=== PATIENT | female | born 1955 | race Caucasian/White ===

== ENCOUNTER 2020-03-08 20:36 | Inpatient (IN) ==
[2020-03-08 20:58] VITALS: BMI 32.5
[2020-03-08] MEDS ORDERED: ZOFRAN INJ 4 MG VIAL IVP ONE (21:01)
[2020-03-08] MEDS ORDERED: DEMEROL INJ IVP ONE (21:01)
[2020-03-08] MEDS ORDERED: PEPCID 20 MG IV PREMIX* 20 MG/50 ML BAG IV ONE ×2 (21:01→21:21)
--- NOTE | 2020-03-08 21:04 | DR.DIZZY ---
HPI Time seen Time Seen by Provider: 03/08/20 20:54 HPI Comment HPI Comment: PATIENT IS 64YR OLD FEMALE IN ER WITH NAUSEA, VOMITING, DIARRHEA AND SOB FOR SEVERAL DAYS. POSITIVE FOR COVID 19 LAST WEEK. FAIL OUT PATIENT TREATMENT. PROGRESSIVELY GETTING WORSE. SHE IS WEAK AND HAVING PERSISTENT DIARRHEA ANS NAUSEA. DENIES DYSURIA AND HAVE ANIREXIA. ALSO HAVING BODYACHES, 4/10 CURRENTLY. Complaint Chief Complaint Doctor Comments: NAUSEA, VOMITING AND ABDOMINAL PAIN WITH BODY ACHES AND SOB TIME COVID-19 Coronavirus risk:travel/contact w/high risk person: No Has patient experienced Coronavirus symptoms: Yes Coronavirus symptoms experienced: Shortness of Breath Nurses Notes Reviewed Nurses Notes Review: Yes Source History Provided: Patient and Significant Other Mode of Arrival Mode of Arrival: Wheelchair Timing Came on: Suddenly Duration Duration: Constant Duration: Days Location of Weakness Weakness Location: Generalized Context Onset: At rest History of: None Stroke Symptoms: None Severity Severity: Abnormal activity level Modifying factors Worsens: Other (EXERTION.) Associated signs and symptoms Associated Signs and Symptoms: Weak, Nausea and Vomiting PMH PMH Past Surgical History: Yes ROS Review of Systems Constitutional: See HPI, Fever, Malaise, Weakness, Fatigue and Loss of Appetite Eyes: No Symptoms Reported, See HPI, Blurred Vision and Diplopia ENTM: No Symptoms Reported; negative Nose Discharge, Nose Congestion and Throat Pain Respiratoy: See HPI and Short of Breath; negative Moist Cough and Wheezing Cardiovascular: No Symptoms Reported and See HPI; negative Chest Pain and Edema Gastrointestinal/Abdominal: See HPI, Abdominal Pain, Diarrhea, Nausea and Vomiting Genitourinary: No Symptoms Reported and See HPI Neurological: See HPI and Weakness; negative Headache and Dizziness Musculoskeletal: See HPI and Muscle Pain; negative Back Pain Integumentary: Change in Color, Dryness and Rash; negative Juandice Hematologic/Lymphatic: No Symptoms Reported and Easy Bruising; negative See HPI and Swollen Glands Endocrine: See HPI and Decreased Appetite; negative Increased Thirst and Increased Urine Psychiatric: No Symptoms Reported and See HPI All Other Systems: Reviewed and Negative PE Vital Signs Vitals: Temperature 99.2 F Pulse Rate 64 Respiratory Rate 20 Blood Pressure [Right Arm] 154/76 Blood Pressure 141/67 O2 Sat by Pulse Oximetry 94 General Limitations: No Limitations General Appearance: Alert and In Distress Head Head Exam: Normal Inspection and Atraumatic Eyes Eye exam: Normal Appearance, PERRL and EOMI; negative Scleral Icterus and Conjunctival Injection Pupils: Regular, Round: Bilateral and Reactive: Bilateral Sclera/Conjunctival: Normal Inspection: Bilateral ENT ENT Exam: Normal Exam, Normal Oropharynx, Normal External Ear Exam and TM's Normal Bilaterally Neck Neck Exam: Normal Inspection and Trachea Midline; negative Tenderness and Lymphadenopathy Chest Chest Inspection: Normal Inspection and Symmetric Chest Wall Rise; negative Tenderness Respiratory Respiratory Exam: Chest Wall Tenderness and Respiratory Distress; negative Accessory Muscle Use Respiratory Exam: Bilateral: Rhonchi and Lower: Rhonchi Cardiovascular Cardiovascular Exam: Regular Rate, Normal Rhythm and Normal Heart Sounds; negative Systolic Murmur and Diastolic Murmur Abdominal Exam Abdominal Exam: Normal Bowel Sounds, Soft and Tenderness Abdominal Tenderness: Diffuse and Moderate Rectal Rectal Exam: Deferred Extremeties Extremities Exam: Tenderness, Normal Capillary Refill, Edema and Calf Tenderness Back Back Exam: (R) CVA Tenderness, (L) CVA Tenderness and Paraspinal Tenderness Neurologic Neurological Exam: Alert, Oriented X3, CN II-XII Intact and Motor Sensory Deficit Patient Oriented To: Person, Place and Time Speech: Fluid Speech Cranial Nerve Exam: EOM Function (II, III, IV, ): Normal, Facial Sensation (V): Normal, Facial Palsy (VII): Normal, Gag reflex (XI): Normal and Tongue Deviation: Normal Motor Strength - LUE: 5/5 Motor Strength - RUE: 5/5 Motor Strength - LLE: 5/5 Motor Strength - RLE: 5/5 Upper Motor Neuron Exam: Babinski Sign: Normal Psychiatric Psychiatric Exam: Normal Affect and Normal Mood Skin Skin Exam: Dry MDM Additional Information Obtained Additional Information Obtained From: Family Differential Diagnosis Differential Diagnosis: Anemia, Dehydration, Dysrhythmia, Electrolyte disorder, Hypoglycemia, Myocardial infarction and Other (GASTROENTERITIS, PNEUMONIA, SOB.) COURSE Treatment Treatment: SEE ORTHERS. NS IL IV BOLUS. Education/Counseling Education/Counseling: Patient Educated On: Diagnosis ROR Labs Reviewed Laboratory Results Reviewed?: Yes Result Diagrams: 03/10/20 04:15 03/10/20 04:15 Laboratory: 03/08/20 21:25 Blood Blood Culture - Preliminary 03/08/20 21:18 Blood Blood Culture - Preliminary WBC 6.2 X10^3/uL (3.6-10.0) 03/08/20 21:18 RBC 3.64 X10^6/uL (3.5-5.4) 03/08/20 21:18 Hgb 11.2 g/dL (12.0-16.0) L 03/08/20 21:18 Hct 33.7 % (36.0-47.0) L 03/08/20 21:18 MCV 92.6 fL (80.0-100.0) 03/08/20 21:18 MCH 30.6 pg (27.0-34.0) 03/08/20 21:18 MCHC 33.1 g/dL (33.0-35.0) 03/08/20 21:18 RDW 12.2 % (11.6-16.5) 03/08/20 21:18 Plt Count 258 X10^3/uL (150.0-450.0) 03/08/20 21:18 MPV 8.9 fL (7.4-11.0) 03/08/20 21:18 Neut % (Auto) 77.3 % (42.0-75.0) H 03/08/20 21:18 Lymph % (Auto) 16.0 % (21.0-51.0) L 03/08/20 21:18 Maury % (Auto) 5.9 % (0.0-13.0) 03/08/20 21:18 Eos % (Auto) 0.6 % (0.9-2.9) L 03/08/20 21:18 Baso % (Auto) 0.2 % (0.2-1.0) 03/08/20 21:18 Neut # (Auto) 4.8 x10^3/uL (2.2-4.8) 03/08/20 21:18 Lymph # (Auto) 1.0 X10^3/uL (1.3-2.9) L 03/08/20 21:18 Maury # (Auto) 0.4 x10^3/uL (0.3-0.8) 03/08/20 21:18 Eos # (Auto) 0.0 x10^3/uL (0.0-0.2) 03/08/20 21:18 Baso # (Auto) 0.0 X10^3/uL (0.0-0.1) 03/08/20 21:18 Absolute Nucleated RBC 0.0 /100WBC 03/08/20 21:18 Sample Site R rad 03/08/20 21:25 ABG pH 7.390 (7.35-7.45) 03/08/20 21:25 ABG pCO2 31.0 mmHg (35.0-45.0) L 03/08/20 21:25 ABG pO2 55.0 mmHg (80.0-100.0) L 03/08/20 21:25 ABG HCO3 18.8 mmol/L (22-26) L 03/08/20 21:25 ABG O2 Saturation 88.0 % (90-100) L 03/08/20 21:25 ABG Base Excess -5.2 mmol/L (-2.0-2.0) L 03/08/20 21:25 Hema Test Poss 03/08/20 21:25 A-a Gradient 56.0 mmHg 03/08/20 21:25 FiO2 21.0 03/08/20 21:25 Blood Gas Comments Ronnie well kb 03/08/20 21:25 Sodium 138 mmol/L (136-145) 03/08/20 21:18 Corrected Sodium TNP 03/08/20 21:18 Potassium 4.0 mmol/L (3.5-5.1) 03/08/20 21:18 Chloride 104 mmol/L (98-107) 03/08/20 21:18 Carbon Dioxide 21.7 mmol/L (21-32) 03/08/20 21:18 BUN 28 mg/dL (7-18) H 03/08/20 21:18 Creatinine 2.07 mg/dL (0.55-1.02) H 03/08/20 21:18 Est GFR (MDRD) Af Amer 31 (>60) L 03/08/20 21:18 Est GFR (MDRD) Non-Af 25 (>60) L 03/08/20 21:18 Glucose 105 mg/dL (65-99) H 03/08/20 21:18 Lactic Acid 0.9 mmol/L (0.4-2.0) 03/08/20 21:18 Calcium 9.4 mg/dL (8.5-10.1) 03/08/20 21:18 Corrected Calcium 10.2 mg/dL (8.5-10.1) H 03/08/20 21:18 Ferritin 1660 ng/mL (8-252) H 03/08/20 21:18 Total Bilirubin 0.50 mg/dL (0.2-1.0) 03/08/20 21:18 AST 22 Units/L (15-37) 03/08/20 21:18 ALT 22 Units/L (12-78) 03/08/20 21:18 Alkaline Phosphatase 60 Units/L (46-116) 03/08/20 21:18 Creatine Kinase 27 Units/L (26-192) 03/08/20 21:18 CK-MB (CK-2) < 1.0 ng/mL (0-4.0) 03/08/20 21:18 CK/CKMB % Calc 3.7 % (<4) 03/08/20 21:18 Troponin I < 0.02 ng/mL (0-1.5) 03/08/20 21:18 Total Protein 7.1 g/dL (6.4-8.2) 03/08/20 21:18 Albumin 3.0 g/dL (3.4-5.0) L 03/08/20 21:18 Globulin 4.1 g/dL (2.5-4.5) 03/08/20 21:18 Albumin/Globulin Ratio 0.7 Ratio (1.1-2.1) L 03/08/20 21:18 Amylase 67 Units/L (25-115) 03/08/20 21:18 Lipase 165 Units/L (73-393) 03/08/20 21:18 XRAY XRAY Interpreted by: Radiologist (REPORT NOTED AND DISCUSSED WITH PATIENT AND HE R .) and Self EKG Buchanan: Normal Rhythm: NSR Block: None Hypertrophy: None ST: Nonsp Opioid Opioid Risk Tool Total: 0 Total Score Risk Category: Low Risk Copyright: [facility] predicting aberrant behaviors Diagnosis Discharge Problem: COVID-19 virus infection, Acute dehydration, Gastroenteritis Pneumonia Qualifiers: Pneumonia type: due to unspecified organism Laterality: bilateral Lung location: lower lobe of lung Qualified Code(s): J18.9 - Pneumonia, unspecified organism Diarrhea Qualifiers: Diarrhea type: unspecified type Qualified Code(s): R19.7 - Diarrhea, unspecified Instructions Instructions: Shortness of Breath, Adult, Wcns-xw-Wzpt Upper Respiratory Infection, Adult, Spnx-ze-Idza Hypoxia Gastritis, Adult, Opui-gr-Baxt Fever, Adult Cough, Adult, Yrcv-ux-Lzgm Antibiotic Medicine, Adult, Tona-jm-Volq Nausea and Vomiting, Adult, Eyru-cm-Ydyc Hypertension, Fznj-ze-Lvrb You've Been Prescribed an Antibiotic in the Hospital for an Infection - [facility] (09/2017) Managing Your Hypertension Rehydration, Elderly Dehydration, Elderly, Uywt-tv-Oedl Diarrhea, Adult, Uxsw-wy-Hbod Community-Acquired Pneumonia, Adult, Lnxe-vp-Kbhs Forms: Precautions for COVID19 Patient Portal Social Distancing
[2020-03-08] MEDS ORDERED: ZOFRAN INJ 4 MG VIAL ONE (21:20)
[2020-03-08] MEDS ORDERED: NS 1000 ML 1,000 ML ONE (21:20)
[2020-03-08] MEDS: NS 1000 ML 1,000 ML IV SCH (21:28)
[2020-03-08 21:29] LABS: ABG BASE EXCESS -5.2 mmol/L (-2.0-2.0); ABG HCO3 18.8 mmol/L (22-26)
[2020-03-08 21:30] LABS: ABG ALLEN TEST POSS
[2020-03-08 21:31] LABS: BASOPHILS % (AUTO) 0.2 % (0.2-1.0); EOSINOPHILS % (AUTO) 0.6 % (0.9-2.9); HEMATOCRIT 33.7 % (36.0-47.0); HEMOGLOBIN 11.2 g/dL (12.0-16.0); MEAN CORPUSCULAR HEMOGLOBIN 30.6 pg (27.0-34.0); MEAN CORPUSCULAR HGB CONC 33.1 g/dL (33.0-35.0); MEAN CORPUSCULAR VOLUME 92.6 fL (80.0-100.0); MEAN PLATELET VOLUME 8.9 fL (7.4-11.0); MONOCYTES # (AUTO) 0.4 x10^3/uL (0.3-0.8); MONOCYTES % (AUTO) 5.9 % (0.0-13.0); NEUTROPHILS # (AUTO) 4.8 x10^3/uL (2.2-4.8); NEUTROPHILS % (AUTO) 77.3 % (42.0-75.0); PLATELET COUNT 258 X10^3/uL (150.0-450.0); RED BLOOD COUNT 3.64 X10^6/uL (3.5-5.4); RED CELL DISTRIBUTION WIDTH 12.2 % (11.6-16.5); WHITE BLOOD COUNT 6.2 X10^3/uL (3.6-10.0)
[2020-03-08 21:50] LABS: BLOOD UREA NITROGEN 28 mg/dL (7-18); CALCIUM 9.4 mg/dL (8.5-10.1); CARBON DIOXIDE 21.7 mmol/L (21-32); CHLORIDE 104 mmol/L (98-107); CREATININE 2.07 mg/dL (0.55-1.02); SODIUM 138 mmol/L (136-145); TROPONIN I < 0.02 ng/mL (0-1.5); eGFR NON BLACK RACES 25 (>60)
[2020-03-08 21:53] LABS: ALANINE AMINOTRANSFERASE 22 Units/L (12-78); ALKALINE PHOSPHATASE 60 Units/L (46-116); AMYLASE 67 Units/L (25-115); ASPARTATE AMINO TRANSFERASE 22 Units/L (15-37); CKMB % 3.7 % (<4); COR CA(FOR HYPOALB) 10.2 mg/dL (8.5-10.1); CREATINE KINASE 27 Units/L (26-192); CREATINE KINASE MB < 1.0 ng/mL (0-4.0); LIPASE 165 Units/L (73-393); TOTAL PROTEIN 7.1 g/dL (6.4-8.2)
--- NOTE | 2020-03-08 21:55 | CT ---
HISTORYAbdominal pain; Covid +STUDYCT ABDOMEN/PELVIS without IV contrastCOMPARISONNoneTECHNIQUEMultiple axial images of the abdomen and pelvis were obtained from the lung bases to the pubic symphysis without the administration of IV contrast. Dose reduction techniques including Automated Exposure Control (AEC) and adjustment of mA and kV were utilized.FINDINGSThe visualized portions of the lung bases reveal diffuse ground-glass infiltrates that are highly suspicious for COVID-19 pneumonia.Mild splenomegaly with a small accessory splenule anteriorly. Liver appears normal.Prior cholecystectomy. No biliary ductal dilation.No pancreatic abnormality is seen.The adrenal glands appear normal.No hydronephrosis or renal abnormality is seen. Ureters and bladder appear normal. Phleboliths are seen in the pelvis.Mild colonic diverticula are seen without evidence of diverticulitis. Small hiatus hernia is seen. Stomach is not distended to evaluate further. No suggestion of enteritis or colitis. Normal appendix is seen.No adnexal masses.Abdominal aorta is normal in size.No suspicious lymphadenopathy.No free intraperitoneal air or fluid is seen.Prominent arthritic changes are seen in the hips, right greater than left. Diastasis of the rectus musculature without evidence of hernia formation.IMPRESSIONProminent ground-glass infiltrates throughout the lower lungs are concerning for COVID-19 pneumonia.Mild splenomegaly is seen. Small hiatus hernia.Electronically signed by: David Ambrose (Mar 08, 2020 21:54:40)
[2020-03-08] MEDS ORDERED: ZOSYN VIAL 3.375 GRAMS IV ONE (22:24)
[2020-03-08] MEDS ORDERED: NS 100 ML IV + SPIKE MINIBAG* 100 ML IV ONE (22:24)
[2020-03-08] MEDS ORDERED: COMPAZINE INJ ONE (22:24)
[2020-03-08] MEDS ORDERED: COMPAZINE INJ IVP ONE (22:26)
[2020-03-08] MEDS: ZOSYN VIAL 3.375 GRAMS 3.375 G in NS 100 ML IV + SPIKE MINIBAG* 100 ML IV SCH (22:28)
[2020-03-08] MEDS ORDERED: REMDESIVIR (INVESTIGATIONAL DRUG GS-5734) 200 MG in NS 250 ML IV 250 ML IV SCH (22:54)
[2020-03-08] MEDS ORDERED: MORPHINE SULFATE INJ 2 MG INJ IVP PRN (22:56)
[2020-03-08] MEDS ORDERED: ZOFRAN INJ 4 MG VIAL IVP PRN (22:56)
[2020-03-09] MEDS ORDERED: XOPENEX 1.25 MG/3 ML NEBULE NEB PRN (00:41)
[2020-03-09] MEDS ORDERED: NS 100 ML IV 100 ML IV ONE (01:54)
[2020-03-09] MEDS ORDERED: ASCORBIC ACID INJ MULTI-DOSE VIAL IV ONE (01:55)
[2020-03-09] MEDS: ASCORBIC ACID INJ MULTI-DOSE VIAL 1,500 MG in NS 100 ML IV 100 ML IV SCH ×4 (02:04→20:45)
[2020-03-09 05:19] LABS: BASOPHILS % (AUTO) 0.3 % (0.2-1.0); EOSINOPHILS # (AUTO) 0.1 x10^3/uL (0.0-0.2); EOSINOPHILS % (AUTO) 1.4 % (0.9-2.9); HEMATOCRIT 32.7 % (36.0-47.0); HEMOGLOBIN 10.8 g/dL (12.0-16.0); LYMPHOCYTES # (AUTO) 1.2 X10^3/uL (1.3-2.9); LYMPHOCYTES % (AUTO) 21.8 % (21.0-51.0); MEAN CORPUSCULAR HEMOGLOBIN 30.7 pg (27.0-34.0); MEAN CORPUSCULAR HGB CONC 32.9 g/dL (33.0-35.0); MEAN CORPUSCULAR VOLUME 93.5 fL (80.0-100.0); MEAN PLATELET VOLUME 9.4 fL (7.4-11.0); MONOCYTES # (AUTO) 0.4 x10^3/uL (0.3-0.8); MONOCYTES % (AUTO) 6.4 % (0.0-13.0); NEUTROPHILS % (AUTO) 70.1 % (42.0-75.0); PLATELET COUNT 253 X10^3/uL (150.0-450.0); RED CELL DISTRIBUTION WIDTH 12.4 % (11.6-16.5); WHITE BLOOD COUNT 5.7 X10^3/uL (3.6-10.0)
[2020-03-09 05:32] LABS: ALANINE AMINOTRANSFERASE 19 Units/L (12-78); ALBUMIN 2.8 g/dL (3.4-5.0); ALKALINE PHOSPHATASE 56 Units/L (46-116); ASPARTATE AMINO TRANSFERASE 21 Units/L (15-37); BLOOD UREA NITROGEN 29 mg/dL (7-18); CALCIUM 9.3 mg/dL (8.5-10.1); CARBON DIOXIDE 22.2 mmol/L (21-32); CHLORIDE 107 mmol/L (98-107); COR CA(FOR HYPOALB) 10.3 mg/dL (8.5-10.1); CREATININE 2.18 mg/dL (0.55-1.02); SODIUM 142 mmol/L (136-145); TOTAL PROTEIN 6.8 g/dL (6.4-8.2); eGFR NON BLACK RACES 24 (>60)
[2020-03-09 06:19] LABS: BILIRUBIN,URINE NEGATIVE (NEGATIVE); BLOOD/HEMOGLOBIN,URINE NEGATIVE (NEGATIVE); GLUCOSE, URINE NEGATIVE (NEGATIVE); KETONES,URINE NEGATIVE (NEGATIVE); LEUKOCYTE ESTERASE ,URINE NEGATIVE (NEGATIVE); NITRITES,URINE NEGATIVE (NEGATIVE); PROTEIN,URINE 2+ (NEGATIVE); UROBILINOGEN,URINE NORMAL (NORMAL)
[2020-03-09 06:26] LABS: APPEARANCE,URINE CLEAR (CLEAR); COLOR,URINE YELLOW (YELLOW)
[2020-03-09] MEDS: ZOSYN VIAL 3.375 GRAMS 3.375 G in NS 100 ML IV + SPIKE MINIBAG* 100 ML IV SCH ×3 (06:35→22:50)
[2020-03-09] MEDS: NS 1000 ML 1,000 ML IV SCH ×3 (06:35→23:28)
[2020-03-09 06:57] LABS: BACTERIA,URINE TRACE /HPF (NEGATIVE); MUCUS,URINE FEW /HPF (NEGATIVE); RBC,URINE NONE SEEN /HPF (0-3); SQUAMOUS EPITHELIAL CELL,UR MANY /HPF (NEGATIVE)
[2020-03-09] MEDS ORDERED: TOPAMAX TAB 100 MG PO ONE (08:25)
[2020-03-09] MEDS ORDERED: PLAQUENIL ONE (08:25)
[2020-03-09] MEDS ORDERED: DECADRON TAB ONE (08:26)
[2020-03-09] MEDS ORDERED: DECADRON TAB PO SCH (09:00)
[2020-03-09] MEDS ORDERED: DUONEB 0.5 MG/3 MG (3 mL) NEB SCH (09:00)
[2020-03-09] MEDS ORDERED: VITAMIN D (1.25MG) PO SCH (09:00)
[2020-03-09] MEDS ORDERED: PLAQUENIL PO SCH (09:00)
[2020-03-09] MEDS: PULMICORT NEB TX 0.5 MG NEB SCH ×2 (09:00→21:35)
[2020-03-09] MEDS ORDERED: VITAMIN A PO SCH (09:00)
[2020-03-09 09:12] LABS: ABG ALLEN TEST POS; ABG BASE EXCESS -5.1 mmol/L (-2.0-2.0); ABG HCO3 18.6 mmol/L (22-26)
[2020-03-09] MEDS: LEVSIN/MAALOX/LIDOC VISC PO SCH ×3 (09:20→17:14)
[2020-03-09] MEDS: LOVENOX INJ 30 MG SYR SC SCH (09:21)
[2020-03-09] MEDS: PROTONIX INJ 40 MG VIAL IVP SCH (09:22)
[2020-03-09] MEDS: SOLU-Medrol 125 MG VIAL IVP SCH ×3 (09:22→21:50)
[2020-03-09] MEDS: TOPAMAX PO SCH (09:22)
[2020-03-09] MEDS: TRICOR TAB 160 MG PO SCH (09:23)
[2020-03-09] MEDS: ZINC SULFATE PO SCH ×2 (09:24→20:45)
--- NOTE | 2020-03-09 10:06 | RAD ---
HISTORYPNEUMONIA, COVID +STUDYCHEST, 1 VIEWCOMPARISONPortable chest April 09, 2019FINDINGSThe trachea is midline. The cardiac silhouette is unremarkable. Diffuse bilateral airspace disease is seen in both lungs that is new from April 08, 2019. There are no effusions pneumothorax or adenopathy. The bony thorax is unremarkable.IMPRESSIONBilateral diffuse peripheral infiltrates right greater than left seen throughout both lungs new from prior chest film in 2019 but which were seen on the CT scan of March 08, 2020 consistent with viral/COVID-19 pneumonia.Electronically signed by: LLOYD OBREGON (Mar 09, 2020 10:05:31)
--- NOTE | 2020-03-09 13:20 | DR.H&P ---
H&P - History & Physical for Day of: H&P Date: 03/08/20 - Chief Complaint Chief Complaint: SOB, WEAKNESS, INTRACTABLE ABDOMINAL PAIN - History of Present Illness History of Present Illness: PT IS 64 WF ER ADMISSION AFTER PT PRESENTED WITH CO INTRACTABLE UPPER ABDOMINAL BURNING, WEAKNESS, SOB AND REPORTS COVID 19+. PT HAD ONSET OF SINUS INFECTION SYMPTOMS 2 WEEKS AGO, GIVEN ZITHROMAX PO AND IM ROCEPHIN X 1 DAYS. PT HAD RESULTS OF +COVID AND STARTED ON PO PLAQUENIL, PEPCID AND CONTINUED ZITHROMAX. PT HAD OUTPT IV FLUIDS X 2 LITERS WITH DECADRON AND IV ROCEPHIN WITH MINIMAL IMPROVEMENT. PT DENIES ANY CAD OR DM. PT HAS PMH OF OA AND HTN. PT HAD CT ABD PELVIS IN ER REVEALING BILATERAL PNEUMONIA - Past Medical History Past Medical History: Arthritis, Depression, Dyslipidemia, Hypertension - Past Surgical History Surgical History: Unknown - Family History Family Medical History: Cancer, Hypertension - Social History Does patient currently use any type of tobacco product: No Have you used tobacco products in the last 12 months: No Type of Tobacco Use: None Does any household member use tobacco: No Alcohol Use: None Drug Use: None - Medications Home Medications: No Known Drug Allergies Allergy (Verified 03/08/20 20:40) CONTINUE taking the following medications amlodipine 5 mg PO DAILY 03/08/20 [History] carvedilol 12.5 mg PO BID 03/08/20 [History] escitalopram oxalate 10 mg PO HS 03/08/20 [History] famotidine 20 mg PO BID 03/08/20 [History] hydroxychloroquine 200 mg PO BID 03/08/20 [History] losartan 100 mg PO HS 03/08/20 [History] meloxicam 15 mg PO DAILY 03/08/20 [History] ondansetron 8 mg PO Q8H PRN 03/08/20 [History] ropinirole 2 mg PO HS 03/08/20 [History] topiramate 25 mg PO DAILY 03/08/20 [History] - Review of Systems Constitutional: Fever, Weakness Eyes: No Symptoms Reported ENT: Throat Pain Respiratory: Shortness of Breath, SOB with Excertion Cardiovascular: No Symptoms Reported Gastrointestinal: Nausea, Abdominal Pain Musculoskeletal: Back Pain Skin: No Symptoms Reported Neurological: Weakness - Physical Exam Vital Signs: Temperature 98.7 F Pulse Rate [Left Brachial] 63 Pulse Rate 71 Respiratory Rate 20 Blood Pressure [Left Arm] 160/74 Blood Pressure [Right Arm] 167/76 Blood Pressure 147/68 O2 Sat by Pulse Oximetry 91 Oriented: Normal Eyes: Normal Ear: Normal Nose: Normal Throat: Dry Respiratory: Diminished Throughout Cardiovascular: Normal. negative: Edema : Normal Auscultation: Bowel Sounds: Normal Palpation: Normal Tenderness: Epigastric Skin: Decreased Turgur Musculoskeletal: Back:Thoracic, Back:Lumbar Affect: Anxious Speech Pattern: Clear, Appropriate - Assessment/Plan (1) Pneumonia due to 2019 novel coronavirus Status: Acute Plan: ADMIT, BLOOD AND SPUTUM CULTURE ON ADMISSION. IV HYDRATION, STRICT I&OS. IV ATBX THERAPY, IV REMDESIVIR, CONVALSECENT PLASMA. BP CONTROL, ABG ON ADMISSION, RESP THERAPY. IV SOLU MEDROL, CARDIAC MONITORING. (2) Acute renal insufficiency Status: Acute (3) Hypertension Status: Acute (4) Gastroenteritis Status: Acute - Allergies Allergies/Adverse Reactions: Allergies Allergy/AdvReac Type Severity Reaction Status Date / Time No Known Drug Allergies Allergy Verified 03/08/20 20:40
[2020-03-09] MEDS: REQUIP PO SCH (20:45)
[2020-03-09] MEDS: COZAAR PO SCH (20:45)
[2020-03-09] MEDS: REMDESIVIR (INVESTIGATIONAL DRUG GS-5734) 100 MG in NS 250 ML IV 250 ML IV SCH (21:50)
[2020-03-10] MEDS: NS 1000 ML 1,000 ML IV SCH ×4 (01:15→23:26)
[2020-03-10] MEDS: ASCORBIC ACID INJ MULTI-DOSE VIAL 1,500 MG in NS 100 ML IV 100 ML IV SCH ×4 (03:00→20:40)
[2020-03-10 05:14] LABS: BASOPHILS % (AUTO) 0.2 % (0.2-1.0); HEMATOCRIT 31.2 % (36.0-47.0); HEMOGLOBIN 10.3 g/dL (12.0-16.0); LYMPHOCYTES # (AUTO) 0.7 X10^3/uL (1.3-2.9); LYMPHOCYTES % (AUTO) 14.3 % (21.0-51.0); MEAN CORPUSCULAR HEMOGLOBIN 30.7 pg (27.0-34.0); MEAN CORPUSCULAR HGB CONC 33.1 g/dL (33.0-35.0); MEAN CORPUSCULAR VOLUME 92.6 fL (80.0-100.0); MONOCYTES # (AUTO) 0.2 x10^3/uL (0.3-0.8); NEUTROPHILS # (AUTO) 3.9 x10^3/uL (2.2-4.8); NEUTROPHILS % (AUTO) 81.5 % (42.0-75.0); PLATELET COUNT 292 X10^3/uL (150.0-450.0); RED BLOOD COUNT 3.37 X10^6/uL (3.5-5.4); RED CELL DISTRIBUTION WIDTH 12.5 % (11.6-16.5); WHITE BLOOD COUNT 4.8 X10^3/uL (3.6-10.0)
[2020-03-10] MEDS: SOLU-Medrol 125 MG VIAL IVP SCH ×3 (05:20→20:45)
[2020-03-10] MEDS: ZOSYN VIAL 3.375 GRAMS 3.375 G in NS 100 ML IV + SPIKE MINIBAG* 100 ML IV SCH ×3 (05:20→22:40)
[2020-03-10 05:27] LABS: ALBUMIN 2.7 g/dL (3.4-5.0); CALCIUM 9.3 mg/dL (8.5-10.1); CARBON DIOXIDE 17.5 mmol/L (21-32); COR CA(FOR HYPOALB) 10.3 mg/dL (8.5-10.1); CREATININE 1.55 mg/dL (0.55-1.02); TOTAL PROTEIN 6.7 g/dL (6.4-8.2)
[2020-03-10] MEDS: LOVENOX INJ 30 MG SYR SC SCH (08:43)
[2020-03-10] MEDS: VITAMIN A PO SCH (08:43)
[2020-03-10] MEDS: VITAMIN D3 125 mcg (5,000 UNITS) PO SCH (08:43)
[2020-03-10] MEDS: PROTONIX INJ 40 MG VIAL IVP SCH (08:43)
[2020-03-10] MEDS: ZINC SULFATE PO SCH ×2 (08:44→20:40)
[2020-03-10] MEDS ORDERED: LASIX IVP SCH (09:00)
[2020-03-10] MEDS: PULMICORT NEB TX 0.5 MG NEB SCH ×2 (09:30→20:55)
[2020-03-10] MEDS ORDERED: TOPAMAX TAB 100 MG PO ONE (09:39)
[2020-03-10] MEDS ORDERED: FLONASE NASAL SPRAY ENOSTRIL ONE (09:40)
[2020-03-10] MEDS ORDERED: NORVASC TAB 5 MG ONE (09:40)
[2020-03-10] MEDS: TOPAMAX PO SCH (09:45)
[2020-03-10] MEDS: TRICOR TAB 160 MG PO SCH (09:45)
[2020-03-10] MEDS: FLONASE NASAL SPRAY ENOSTRIL SCH (09:55)
[2020-03-10] MEDS: BENADRYL INJ 50 MG VIAL IV SCH ×2 (09:56→18:41)
[2020-03-10] MEDS ORDERED: NORVASC TAB 5 MG PO SCH (10:00)
[2020-03-10] MEDS ORDERED: XOPENEX 1.25 MG/3 ML NEBULE NEB ONE (11:22)
[2020-03-10] MEDS: XOPENEX 1.25 MG/3 ML NEBULE NEB SCH ×2 (12:00→20:55)
[2020-03-10] MEDS: COZAAR PO SCH (20:40)
[2020-03-10] MEDS: REQUIP PO SCH (20:40)
[2020-03-10] MEDS: REMDESIVIR (INVESTIGATIONAL DRUG GS-5734) 100 MG in NS 250 ML IV 250 ML IV SCH (21:35)
[2020-03-11] MEDS: ASCORBIC ACID INJ MULTI-DOSE VIAL 1,500 MG in NS 100 ML IV 100 ML IV SCH ×4 (02:43→20:39)
[2020-03-11] MEDS: BENADRYL INJ 50 MG VIAL IV SCH ×3 (02:43→17:51)
[2020-03-11] MEDS: NS 1000 ML 1,000 ML IV SCH ×4 (04:31→20:40)
[2020-03-11] MEDS: XOPENEX 1.25 MG/3 ML NEBULE NEB SCH ×3 (05:05→21:08)
[2020-03-11] MEDS: ZOSYN VIAL 3.375 GRAMS 3.375 G in NS 100 ML IV + SPIKE MINIBAG* 100 ML IV SCH ×3 (05:15→21:26)
[2020-03-11] MEDS: SOLU-Medrol 125 MG VIAL IVP SCH ×3 (05:15→21:25)
[2020-03-11 06:19] LABS: BASOPHILS % (AUTO) 0.1 % (0.2-1.0); HEMATOCRIT 31.1 % (36.0-47.0); HEMOGLOBIN 10.4 g/dL (12.0-16.0); LYMPHOCYTES # (AUTO) 0.9 X10^3/uL (1.3-2.9); LYMPHOCYTES % (AUTO) 8.6 % (21.0-51.0); MEAN CORPUSCULAR HEMOGLOBIN 31.2 pg (27.0-34.0); MEAN CORPUSCULAR HGB CONC 33.5 g/dL (33.0-35.0); MEAN CORPUSCULAR VOLUME 93.1 fL (80.0-100.0); MEAN PLATELET VOLUME 9.2 fL (7.4-11.0); MONOCYTES # (AUTO) 0.5 x10^3/uL (0.3-0.8); NEUTROPHILS % (AUTO) 86.3 % (42.0-75.0); PLATELET COUNT 341 X10^3/uL (150.0-450.0); RED BLOOD COUNT 3.35 X10^6/uL (3.5-5.4); RED CELL DISTRIBUTION WIDTH 12.4 % (11.6-16.5); WHITE BLOOD COUNT 10.4 X10^3/uL (3.6-10.0)
[2020-03-11 06:32] LABS: ALBUMIN 2.7 g/dL (3.4-5.0); CALCIUM 9.2 mg/dL (8.5-10.1); COR CA(FOR HYPOALB) 10.2 mg/dL (8.5-10.1); CREATININE 1.67 mg/dL (0.55-1.02); TOTAL PROTEIN 6.9 g/dL (6.4-8.2)
[2020-03-11] MEDS: PULMICORT NEB TX 0.5 MG NEB SCH ×2 (09:00→21:09)
[2020-03-11 09:41] LABS: ABG BASE EXCESS -5.7 mmol/L (-2.0-2.0); ABG HCO3 18.2 mmol/L (22-26)
[2020-03-11] MEDS: NORVASC TAB 10 MG PO SCH (09:42)
[2020-03-11] MEDS: LOVENOX INJ 30 MG SYR SC SCH (09:42)
[2020-03-11] MEDS: PROTONIX INJ 40 MG VIAL IVP SCH (09:43)
[2020-03-11] MEDS: VITAMIN D3 125 mcg (5,000 UNITS) PO SCH (09:43)
[2020-03-11] MEDS: TRICOR TAB 160 MG PO SCH (09:43)
[2020-03-11] MEDS: ZINC SULFATE PO SCH ×2 (09:43→20:41)
[2020-03-11] MEDS: FLONASE NASAL SPRAY ENOSTRIL SCH (09:44)
[2020-03-11] MEDS: VITAMIN A PO SCH (09:44)
[2020-03-11] MEDS: TOPAMAX PO SCH (09:44)
--- NOTE | 2020-03-11 12:11 | RAD ---
HISTORYCOVID PNASTUDYCHEST, 1 VIEWCOMPARISONPortable chest March 09, 2020FINDINGSThe trachea is midline. The cardiac silhouette is upper limits of normal in size but stable. Vascularity is normal. Bilateral diffuse airspace disease is unchanged from yesterday's exam and right are consistent with viral/COVID-19 pneumonia. There is no worsening or improvement compared to the recent film of March 09, 2020.. The lungs are clear without focal infiltrate or effusion. The bony thorax is unremarkable.IMPRESSIONNo change in the bilateral patchy diffuse infiltrates since the last study March 09, 2020.Electronically signed by: LLOYD OBREGON (Mar 11, 2020 12:11:01)
[2020-03-11] MEDS: COZAAR PO SCH (20:40)
[2020-03-11] MEDS: REMDESIVIR (INVESTIGATIONAL DRUG GS-5734) 100 MG in NS 250 ML IV 250 ML IV SCH (20:40)
[2020-03-11] MEDS: REQUIP PO SCH (20:41)
[2020-03-12] MEDS: BENADRYL INJ 50 MG VIAL IV SCH ×3 (02:55→17:20)
[2020-03-12] MEDS: ASCORBIC ACID INJ MULTI-DOSE VIAL 1,500 MG in NS 100 ML IV 100 ML IV SCH ×4 (02:55→20:26)
[2020-03-12] MEDS: NS 1000 ML 1,000 ML IV SCH ×4 (05:02→21:37)
[2020-03-12] MEDS: ZOSYN VIAL 3.375 GRAMS 3.375 G in NS 100 ML IV + SPIKE MINIBAG* 100 ML IV SCH ×3 (05:02→21:37)
[2020-03-12] MEDS: SOLU-Medrol 125 MG VIAL IVP SCH (05:02)
[2020-03-12 05:33] LABS: BASOPHILS % (AUTO) 0.5 % (0.2-1.0); HEMATOCRIT 30.2 % (36.0-47.0); HEMOGLOBIN 10.2 g/dL (12.0-16.0); LYMPHOCYTES # (AUTO) 0.7 X10^3/uL (1.3-2.9); LYMPHOCYTES % (AUTO) 8.1 % (21.0-51.0); MEAN CORPUSCULAR HEMOGLOBIN 31.1 pg (27.0-34.0); MEAN CORPUSCULAR HGB CONC 33.7 g/dL (33.0-35.0); MEAN CORPUSCULAR VOLUME 92.3 fL (80.0-100.0); MEAN PLATELET VOLUME 9.4 fL (7.4-11.0); MONOCYTES # (AUTO) 0.4 x10^3/uL (0.3-0.8); MONOCYTES % (AUTO) 5.1 % (0.0-13.0); NEUTROPHILS # (AUTO) 7.1 x10^3/uL (2.2-4.8); NEUTROPHILS % (AUTO) 86.3 % (42.0-75.0); PLATELET COUNT 364 X10^3/uL (150.0-450.0); RED BLOOD COUNT 3.27 X10^6/uL (3.5-5.4); RED CELL DISTRIBUTION WIDTH 12.6 % (11.6-16.5); WHITE BLOOD COUNT 8.3 X10^3/uL (3.6-10.0)
[2020-03-12 05:40] LABS: ALBUMIN 2.7 g/dL (3.4-5.0); CALCIUM 8.8 mg/dL (8.5-10.1); CARBON DIOXIDE 22.1 mmol/L (21-32); COR CA(FOR HYPOALB) 9.8 mg/dL (8.5-10.1); CREATININE 1.44 mg/dL (0.55-1.02); TOTAL PROTEIN 6.6 g/dL (6.4-8.2)
[2020-03-12] MEDS: NORVASC TAB 10 MG PO SCH ×2 (05:42→09:24)
[2020-03-12] MEDS: FLONASE NASAL SPRAY ENOSTRIL SCH (09:23)
[2020-03-12] MEDS: LOVENOX INJ 30 MG SYR SC SCH (09:23)
[2020-03-12] MEDS: PROTONIX INJ 40 MG VIAL IVP SCH (09:24)
[2020-03-12] MEDS: ZINC SULFATE PO SCH ×2 (09:25→20:27)
[2020-03-12] MEDS: VITAMIN A PO SCH (09:25)
[2020-03-12] MEDS: TRICOR TAB 160 MG PO SCH (09:25)
[2020-03-12] MEDS: VITAMIN D3 125 mcg (5,000 UNITS) PO SCH (09:25)
[2020-03-12] MEDS: PULMICORT NEB TX 0.5 MG NEB SCH ×2 (09:30→21:40)
[2020-03-12] MEDS: APRESOLINE INJ 20 MG VIAL IVP PRN (09:45)
[2020-03-12] MEDS: TOPAMAX PO SCH (09:49)
[2020-03-12] MEDS: DECADRON TAB PO SCH (09:50)
[2020-03-12] MEDS: HumuLIN R SUBCUT PRN ×3 (12:05→20:29)
[2020-03-12] MEDS: XOPENEX 1.25 MG/3 ML NEBULE NEB SCH ×2 (14:15→21:40)
[2020-03-12] MEDS ORDERED: SNACK - Diabetic Appropriate PO SCH (20:00)
[2020-03-12] MEDS: REQUIP PO SCH (20:26)
[2020-03-12] MEDS: COZAAR PO SCH (20:27)
[2020-03-12] MEDS: REMDESIVIR (INVESTIGATIONAL DRUG GS-5734) 100 MG in NS 250 ML IV 250 ML IV SCH (20:28)
[2020-03-13] MEDS: BENADRYL INJ 50 MG VIAL IV SCH ×2 (02:07→10:26)
[2020-03-13] MEDS: ASCORBIC ACID INJ MULTI-DOSE VIAL 1,500 MG in NS 100 ML IV 100 ML IV SCH ×2 (02:07→08:36)
[2020-03-13 04:58] LABS: BASOPHILS % (AUTO) 0.6 % (0.2-1.0); HEMATOCRIT 29.9 % (36.0-47.0); HEMOGLOBIN 10.2 g/dL (12.0-16.0); LYMPHOCYTES # (AUTO) 1.1 X10^3/uL (1.3-2.9); MEAN CORPUSCULAR HEMOGLOBIN 31.1 pg (27.0-34.0); MEAN CORPUSCULAR HGB CONC 34.1 g/dL (33.0-35.0); MEAN CORPUSCULAR VOLUME 91.2 fL (80.0-100.0); MEAN PLATELET VOLUME 9.7 fL (7.4-11.0); MONOCYTES # (AUTO) 0.5 x10^3/uL (0.3-0.8); MONOCYTES % (AUTO) 7.8 % (0.0-13.0); NEUTROPHILS # (AUTO) 5.3 x10^3/uL (2.2-4.8); NEUTROPHILS % (AUTO) 75.6 % (42.0-75.0); PLATELET COUNT 336 X10^3/uL (150.0-450.0); RED BLOOD COUNT 3.27 X10^6/uL (3.5-5.4); RED CELL DISTRIBUTION WIDTH 12.6 % (11.6-16.5)
[2020-03-13 05:03] LABS: ALBUMIN 2.8 g/dL (3.4-5.0); CALCIUM 8.8 mg/dL (8.5-10.1); COR CA(FOR HYPOALB) 9.8 mg/dL (8.5-10.1); CREATININE 1.35 mg/dL (0.55-1.02); TOTAL PROTEIN 6.4 g/dL (6.4-8.2)
[2020-03-13] MEDS: ZOSYN VIAL 3.375 GRAMS 3.375 G in NS 100 ML IV + SPIKE MINIBAG* 100 ML IV SCH (05:03)
[2020-03-13] MEDS: APRESOLINE INJ 20 MG VIAL IVP PRN (05:12)
[2020-03-13] MEDS: NS 1000 ML 1,000 ML IV SCH (05:59)
[2020-03-13] MEDS: XOPENEX 1.25 MG/3 ML NEBULE NEB SCH (06:35)
[2020-03-13 08:25] LABS: ABG ALLEN TEST POS; ABG BASE EXCESS 2.1 mmol/L (-2.0-2.0); ABG HCO3 25.1 mmol/L (22-26)
[2020-03-13] MEDS: DECADRON TAB PO SCH (08:36)
[2020-03-13] MEDS: LOVENOX INJ 30 MG SYR SC SCH (08:37)
[2020-03-13] MEDS: NORVASC TAB 10 MG PO SCH (08:37)
[2020-03-13] MEDS: FLONASE NASAL SPRAY ENOSTRIL SCH (08:37)
[2020-03-13] MEDS: TOPAMAX PO SCH (08:38)
[2020-03-13] MEDS: PROTONIX INJ 40 MG VIAL IVP SCH (08:38)
[2020-03-13] MEDS: ZINC SULFATE PO SCH (08:40)
[2020-03-13] MEDS: TRICOR TAB 160 MG PO SCH (08:40)
[2020-03-13] MEDS: VITAMIN D3 125 mcg (5,000 UNITS) PO SCH (08:40)
[2020-03-13] MEDS: VITAMIN A PO SCH (08:40)
[2020-03-13 09:29] VITALS: BP 160/80
[2020-03-13] MEDS: PULMICORT NEB TX 0.5 MG NEB SCH (09:51)
--- NOTE | 2020-03-13 10:13 | RAD ---
HISTORYShortness of breath, COVID-19STUDYChest AP [id number]/23/2020FINDINGSThe heart is upper limits normal in size. No congestive heart failure is noted. Bilateral interstitial and patchy ground-glass and alveolar infiltrates are unchanged when compared to the prior examination. No pleural effusions are identified. Bony thorax is unremarkable.IMPRESSIONNo significant change from the prior examinationElectronically signed by: MINDI TALLEY (Mar 13, 2020 10:13:01)
== END 2020-03-13 10:25 | disposition home or self-care (01) | DRG 177 ==
LOC: ER 20:37 → MED/SURG 22:43
PROVIDERS: ADMIT Family Medicine; ATTEND Internal Medicine
DX: R06.02 Shortness of breath; R10.84 Generalized abdominal pain; K29.70 Gastritis, unspecified, without bleeding; J12.89 Other viral pneumonia; R43.8 Other disturbances of smell and taste; M19.90 Unspecified osteoarthritis, unspecified site; R73.09 Other abnormal glucose; U07.1 COVID-19; I12.9 Hypertensive chronic kidney disease with stage 1 through stage 4 chronic kidney disease, or unspecified chronic kidney disease; M54.89 Other dorsalgia; K52.89 Other specified noninfective gastroenteritis and colitis; R07.89 Other chest pain; E86.0 Dehydration